=== PATIENT | male | born 1945 | race Caucasian/White ===

== ENCOUNTER → 2018-02-26 | Outpatient (CLI) | payer OTHER ==
[~2018-02-26] MED LIST: FLUOCINONIDE 0.05% 1 EA/15 GM TUBE ONE; MINERAL OIL/PETROLAT/GLYCERI 6OZ BTL ONE
== END ==
LOC: WCC 13:01
PROVIDERS: ATTEND Family Medicine Adult Medicine
DX: I87.332 Chronic venous hypertension (idiopathic) with ulcer and inflammation of left lower extremity (principal); L97.829 Non-pressure chronic ulcer of other part of left lower leg with unspecified severity; I87.323 Chronic venous hypertension (idiopathic) with inflammation of bilateral lower extremity; L03.90 Cellulitis, unspecified; I83.12 Varicose veins of left lower extremity with inflammation; I89.0 Lymphedema, not elsewhere classified; R60.0 Localized edema; I73.89 Other specified peripheral vascular diseases; I87.2 Venous insufficiency (chronic) (peripheral); D64.9 Anemia, unspecified; I10 Essential (primary) hypertension; E78.5 Hyperlipidemia, unspecified; F10.29 Alcohol dependence with unspecified alcohol-induced disorder; F33.9 Major depressive disorder, recurrent, unspecified; F43.12 Post-traumatic stress disorder, chronic; I50.9 Heart failure, unspecified; N18.9 Chronic kidney disease, unspecified; S22.41XA Multiple fractures of ribs, right side, initial encounter for closed fracture

== ENCOUNTER → 2018-03-01 | Outpatient (CLI) | payer OTHER | LOC: WCC 14:12 | PROVIDERS: ATTEND Family Medicine Adult Medicine | DX: I87.332 Chronic venous hypertension (idiopathic) with ulcer and inflammation of left lower extremity (principal); I87.323 Chronic venous hypertension (idiopathic) with inflammation of bilateral lower extremity; L97.829 Non-pressure chronic ulcer of other part of left lower leg with unspecified severity; I83.12 Varicose veins of left lower extremity with inflammation; L03.90 Cellulitis, unspecified; R60.0 Localized edema; I89.0 Lymphedema, not elsewhere classified; I87.2 Venous insufficiency (chronic) (peripheral); I73.89 Other specified peripheral vascular diseases; S22.41XA Multiple fractures of ribs, right side, initial encounter for closed fracture; N18.9 Chronic kidney disease, unspecified; I10 Essential (primary) hypertension; I50.9 Heart failure, unspecified; D64.9 Anemia, unspecified; F33.9 Major depressive disorder, recurrent, unspecified; F10.29 Alcohol dependence with unspecified alcohol-induced disorder; F43.12 Post-traumatic stress disorder, chronic; E78.5 Hyperlipidemia, unspecified | CPT/HCPCS: 93922; 93925; 93970 ==

== ENCOUNTER → 2018-03-05 | Outpatient (CLI) | payer OTHER | LOC: WCC 14:14 | PROVIDERS: ATTEND Family Medicine Adult Medicine | DX: I87.332 Chronic venous hypertension (idiopathic) with ulcer and inflammation of left lower extremity (principal); I87.323 Chronic venous hypertension (idiopathic) with inflammation of bilateral lower extremity; L97.829 Non-pressure chronic ulcer of other part of left lower leg with unspecified severity; L03.90 Cellulitis, unspecified; I83.12 Varicose veins of left lower extremity with inflammation; I87.2 Venous insufficiency (chronic) (peripheral); I89.0 Lymphedema, not elsewhere classified; R60.0 Localized edema; I73.89 Other specified peripheral vascular diseases; D64.9 Anemia, unspecified; E78.5 Hyperlipidemia, unspecified; F10.29 Alcohol dependence with unspecified alcohol-induced disorder; F33.9 Major depressive disorder, recurrent, unspecified; F43.12 Post-traumatic stress disorder, chronic; I10 Essential (primary) hypertension; I50.9 Heart failure, unspecified; N18.9 Chronic kidney disease, unspecified; S22.41XA Multiple fractures of ribs, right side, initial encounter for closed fracture ==

== ENCOUNTER → 2018-03-08 | Outpatient (CLI) | payer OTHER | LOC: WCC 15:21 | PROVIDERS: ATTEND Family Medicine Adult Medicine | DX: I87.323 Chronic venous hypertension (idiopathic) with inflammation of bilateral lower extremity (principal); I83.12 Varicose veins of left lower extremity with inflammation; L03.90 Cellulitis, unspecified; R60.0 Localized edema; I89.0 Lymphedema, not elsewhere classified; I87.2 Venous insufficiency (chronic) (peripheral); I73.89 Other specified peripheral vascular diseases; N18.9 Chronic kidney disease, unspecified; I10 Essential (primary) hypertension; D64.9 Anemia, unspecified; F33.9 Major depressive disorder, recurrent, unspecified; F10.29 Alcohol dependence with unspecified alcohol-induced disorder; F43.12 Post-traumatic stress disorder, chronic; E78.5 Hyperlipidemia, unspecified; S22.41XA Multiple fractures of ribs, right side, initial encounter for closed fracture; I50.9 Heart failure, unspecified ==

== ENCOUNTER → 2018-03-12 | Outpatient (CLI) | payer OTHER | LOC: WCC 10:18 | PROVIDERS: ATTEND Family Medicine Adult Medicine | DX: I87.323 Chronic venous hypertension (idiopathic) with inflammation of bilateral lower extremity (principal); I83.12 Varicose veins of left lower extremity with inflammation; L03.90 Cellulitis, unspecified; I89.0 Lymphedema, not elsewhere classified; R60.0 Localized edema; I73.89 Other specified peripheral vascular diseases; I87.2 Venous insufficiency (chronic) (peripheral); D64.9 Anemia, unspecified; E78.5 Hyperlipidemia, unspecified; N18.9 Chronic kidney disease, unspecified; I10 Essential (primary) hypertension; F33.9 Major depressive disorder, recurrent, unspecified; S22.41XA Multiple fractures of ribs, right side, initial encounter for closed fracture; I50.9 Heart failure, unspecified; F43.12 Post-traumatic stress disorder, chronic; F10.29 Alcohol dependence with unspecified alcohol-induced disorder ==

== ENCOUNTER → 2018-03-15 | Outpatient (CLI) | payer OTHER | LOC: WCC 13:31 | PROVIDERS: ATTEND Family Medicine Adult Medicine | DX: I87.323 Chronic venous hypertension (idiopathic) with inflammation of bilateral lower extremity (principal); I83.12 Varicose veins of left lower extremity with inflammation; R60.0 Localized edema; I89.0 Lymphedema, not elsewhere classified; D64.9 Anemia, unspecified; F33.9 Major depressive disorder, recurrent, unspecified; F10.29 Alcohol dependence with unspecified alcohol-induced disorder; F43.12 Post-traumatic stress disorder, chronic; I10 Essential (primary) hypertension; E78.5 Hyperlipidemia, unspecified; I73.89 Other specified peripheral vascular diseases; I87.2 Venous insufficiency (chronic) (peripheral); N18.9 Chronic kidney disease, unspecified; L03.90 Cellulitis, unspecified; S22.41XA Multiple fractures of ribs, right side, initial encounter for closed fracture; I50.9 Heart failure, unspecified ==

== ENCOUNTER → 2018-03-19 | Outpatient (CLI) | payer OTHER | LOC: WCC 09:59 | PROVIDERS: ATTEND Family Medicine Adult Medicine | DX: I87.323 Chronic venous hypertension (idiopathic) with inflammation of bilateral lower extremity (principal); I83.12 Varicose veins of left lower extremity with inflammation; L03.90 Cellulitis, unspecified; R60.0 Localized edema; I73.89 Other specified peripheral vascular diseases; I87.2 Venous insufficiency (chronic) (peripheral); I89.0 Lymphedema, not elsewhere classified; N18.9 Chronic kidney disease, unspecified; I10 Essential (primary) hypertension; D64.9 Anemia, unspecified; E78.5 Hyperlipidemia, unspecified; F10.29 Alcohol dependence with unspecified alcohol-induced disorder; F33.9 Major depressive disorder, recurrent, unspecified; F43.12 Post-traumatic stress disorder, chronic; I50.9 Heart failure, unspecified; S22.41XA Multiple fractures of ribs, right side, initial encounter for closed fracture ==

== ENCOUNTER → 2018-03-22 | Outpatient (CLI) | payer OTHER | LOC: WCC 09:00 | PROVIDERS: ATTEND Family Medicine Adult Medicine | DX: I87.323 Chronic venous hypertension (idiopathic) with inflammation of bilateral lower extremity (principal); L03.90 Cellulitis, unspecified; I73.89 Other specified peripheral vascular diseases; I83.12 Varicose veins of left lower extremity with inflammation; I89.0 Lymphedema, not elsewhere classified; I87.2 Venous insufficiency (chronic) (peripheral); R60.0 Localized edema; N18.9 Chronic kidney disease, unspecified; I10 Essential (primary) hypertension; E78.5 Hyperlipidemia, unspecified; I50.9 Heart failure, unspecified; S22.41XA Multiple fractures of ribs, right side, initial encounter for closed fracture; D64.9 Anemia, unspecified; F33.9 Major depressive disorder, recurrent, unspecified; F10.29 Alcohol dependence with unspecified alcohol-induced disorder; F43.12 Post-traumatic stress disorder, chronic ==

== ENCOUNTER → 2018-03-26 | Outpatient (CLI) | payer OTHER | LOC: WCC 08:13 | PROVIDERS: ATTEND Family Medicine Adult Medicine | DX: I87.323 Chronic venous hypertension (idiopathic) with inflammation of bilateral lower extremity (principal); L03.90 Cellulitis, unspecified; I83.12 Varicose veins of left lower extremity with inflammation; R60.0 Localized edema; I87.2 Venous insufficiency (chronic) (peripheral); I89.0 Lymphedema, not elsewhere classified; I73.89 Other specified peripheral vascular diseases; N18.9 Chronic kidney disease, unspecified; I10 Essential (primary) hypertension; S22.41XA Multiple fractures of ribs, right side, initial encounter for closed fracture; D64.9 Anemia, unspecified; E78.5 Hyperlipidemia, unspecified; F10.29 Alcohol dependence with unspecified alcohol-induced disorder; F33.9 Major depressive disorder, recurrent, unspecified; F43.12 Post-traumatic stress disorder, chronic; I50.9 Heart failure, unspecified ==

== ENCOUNTER → 2018-03-29 | Outpatient (CLI) | payer OTHER | LOC: WCC 13:27 | PROVIDERS: ATTEND Family Medicine Adult Medicine | DX: I87.323 Chronic venous hypertension (idiopathic) with inflammation of bilateral lower extremity (principal); I83.12 Varicose veins of left lower extremity with inflammation; L03.90 Cellulitis, unspecified; R60.0 Localized edema; I10 Essential (primary) hypertension; I89.0 Lymphedema, not elsewhere classified; I87.2 Venous insufficiency (chronic) (peripheral); I73.89 Other specified peripheral vascular diseases; D64.9 Anemia, unspecified; F33.9 Major depressive disorder, recurrent, unspecified; F10.29 Alcohol dependence with unspecified alcohol-induced disorder; S22.41XA Multiple fractures of ribs, right side, initial encounter for closed fracture; N18.9 Chronic kidney disease, unspecified; I50.9 Heart failure, unspecified; E78.5 Hyperlipidemia, unspecified; F43.12 Post-traumatic stress disorder, chronic ==

== ENCOUNTER → 2018-04-02 | Outpatient (CLI) | payer OTHER | LOC: WCC 14:26 | PROVIDERS: ATTEND Family Medicine Adult Medicine | DX: I87.323 Chronic venous hypertension (idiopathic) with inflammation of bilateral lower extremity (principal); I83.12 Varicose veins of left lower extremity with inflammation; I73.89 Other specified peripheral vascular diseases; I89.0 Lymphedema, not elsewhere classified; I87.2 Venous insufficiency (chronic) (peripheral); R60.0 Localized edema; N18.9 Chronic kidney disease, unspecified; I10 Essential (primary) hypertension; I50.9 Heart failure, unspecified; D64.9 Anemia, unspecified; E78.5 Hyperlipidemia, unspecified; F10.29 Alcohol dependence with unspecified alcohol-induced disorder; F33.9 Major depressive disorder, recurrent, unspecified; F43.12 Post-traumatic stress disorder, chronic; S22.41XA Multiple fractures of ribs, right side, initial encounter for closed fracture ==

== ENCOUNTER → 2018-04-05 | Outpatient (CLI) | payer OTHER | LOC: WCC 13:55 | PROVIDERS: ATTEND Internal Medicine Infectious Disease | DX: I87.323 Chronic venous hypertension (idiopathic) with inflammation of bilateral lower extremity (principal); I83.12 Varicose veins of left lower extremity with inflammation; L03.90 Cellulitis, unspecified; R60.0 Localized edema; I89.0 Lymphedema, not elsewhere classified; I73.89 Other specified peripheral vascular diseases; I87.2 Venous insufficiency (chronic) (peripheral); N18.9 Chronic kidney disease, unspecified; I10 Essential (primary) hypertension; D64.9 Anemia, unspecified; F33.9 Major depressive disorder, recurrent, unspecified; F10.29 Alcohol dependence with unspecified alcohol-induced disorder; F43.12 Post-traumatic stress disorder, chronic; E78.5 Hyperlipidemia, unspecified; S22.41XA Multiple fractures of ribs, right side, initial encounter for closed fracture; I50.9 Heart failure, unspecified ==

== ENCOUNTER → 2018-04-09 | Outpatient (CLI) | payer OTHER | LOC: WCC 09:41 | PROVIDERS: ATTEND Family Medicine Adult Medicine | DX: I87.323 Chronic venous hypertension (idiopathic) with inflammation of bilateral lower extremity (principal); I83.12 Varicose veins of left lower extremity with inflammation; L03.90 Cellulitis, unspecified; R60.0 Localized edema; I89.0 Lymphedema, not elsewhere classified; I87.2 Venous insufficiency (chronic) (peripheral); I73.89 Other specified peripheral vascular diseases; D64.9 Anemia, unspecified; F33.9 Major depressive disorder, recurrent, unspecified; N18.9 Chronic kidney disease, unspecified; I10 Essential (primary) hypertension; I50.9 Heart failure, unspecified; E78.5 Hyperlipidemia, unspecified; S22.41XA Multiple fractures of ribs, right side, initial encounter for closed fracture; F43.12 Post-traumatic stress disorder, chronic; F10.29 Alcohol dependence with unspecified alcohol-induced disorder ==

== ENCOUNTER → 2018-04-11 | Outpatient (CLI) | payer OTHER | LOC: WCC 09:27 | PROVIDERS: ATTEND Family Medicine Adult Medicine | DX: I87.323 Chronic venous hypertension (idiopathic) with inflammation of bilateral lower extremity (principal); I83.12 Varicose veins of left lower extremity with inflammation; L03.90 Cellulitis, unspecified; I87.2 Venous insufficiency (chronic) (peripheral); I73.89 Other specified peripheral vascular diseases; I89.0 Lymphedema, not elsewhere classified; R60.0 Localized edema; N18.9 Chronic kidney disease, unspecified; I10 Essential (primary) hypertension; I50.9 Heart failure, unspecified; S22.41XA Multiple fractures of ribs, right side, initial encounter for closed fracture; E78.5 Hyperlipidemia, unspecified; D64.9 Anemia, unspecified; F10.29 Alcohol dependence with unspecified alcohol-induced disorder; F33.9 Major depressive disorder, recurrent, unspecified; F43.12 Post-traumatic stress disorder, chronic ==

== ENCOUNTER → 2018-04-16 | Outpatient (CLI) | payer OTHER | LOC: WCC 08:07 | PROVIDERS: ATTEND Family Medicine Adult Medicine | DX: I87.323 Chronic venous hypertension (idiopathic) with inflammation of bilateral lower extremity (principal); I83.12 Varicose veins of left lower extremity with inflammation; L03.90 Cellulitis, unspecified; I73.89 Other specified peripheral vascular diseases; I87.2 Venous insufficiency (chronic) (peripheral); I89.0 Lymphedema, not elsewhere classified; R60.0 Localized edema; N18.9 Chronic kidney disease, unspecified; I10 Essential (primary) hypertension; I50.9 Heart failure, unspecified; D64.9 Anemia, unspecified; F33.9 Major depressive disorder, recurrent, unspecified; F10.29 Alcohol dependence with unspecified alcohol-induced disorder; F43.12 Post-traumatic stress disorder, chronic; E78.5 Hyperlipidemia, unspecified; S22.41XA Multiple fractures of ribs, right side, initial encounter for closed fracture ==

== ENCOUNTER → 2018-04-18 | Outpatient (CLI) | payer OTHER | LOC: WCC 12:02 | PROVIDERS: ATTEND Family Medicine Adult Medicine | DX: I87.323 Chronic venous hypertension (idiopathic) with inflammation of bilateral lower extremity (principal); I83.12 Varicose veins of left lower extremity with inflammation; L03.114 Cellulitis of left upper limb; L03.90 Cellulitis, unspecified; R60.0 Localized edema; I73.89 Other specified peripheral vascular diseases; I87.2 Venous insufficiency (chronic) (peripheral); I89.0 Lymphedema, not elsewhere classified; I50.9 Heart failure, unspecified; I10 Essential (primary) hypertension; D64.9 Anemia, unspecified; E78.5 Hyperlipidemia, unspecified; F10.29 Alcohol dependence with unspecified alcohol-induced disorder; F33.9 Major depressive disorder, recurrent, unspecified; F43.12 Post-traumatic stress disorder, chronic; N18.9 Chronic kidney disease, unspecified; S22.41XA Multiple fractures of ribs, right side, initial encounter for closed fracture; X58.XXXA Exposure to other specified factors, initial encounter ==

== ENCOUNTER → 2018-05-02 | Outpatient (CLI) | payer OTHER | LOC: WCC 12:05 | PROVIDERS: ATTEND Family Medicine Adult Medicine | DX: I87.323 Chronic venous hypertension (idiopathic) with inflammation of bilateral lower extremity (principal); L03.114 Cellulitis of left upper limb; L03.90 Cellulitis, unspecified; R60.0 Localized edema; I89.0 Lymphedema, not elsewhere classified; I87.2 Venous insufficiency (chronic) (peripheral); I73.89 Other specified peripheral vascular diseases; I83.12 Varicose veins of left lower extremity with inflammation; N18.9 Chronic kidney disease, unspecified; I10 Essential (primary) hypertension; D64.9 Anemia, unspecified; E78.5 Hyperlipidemia, unspecified; F10.29 Alcohol dependence with unspecified alcohol-induced disorder; F33.9 Major depressive disorder, recurrent, unspecified; F43.12 Post-traumatic stress disorder, chronic; I50.9 Heart failure, unspecified; S22.41XA Multiple fractures of ribs, right side, initial encounter for closed fracture; X58.XXXA Exposure to other specified factors, initial encounter ==